=== PATIENT | male | born 1945 | race Caucasian/White ===

== ENCOUNTER 2018-06-25 11:30 | Outpatient (CLI) | payer OTHER | END 2018-06-25 23:59 | disposition home or self-care (01) | LOC: CARD DIAG 11:30 | PROVIDERS: ATTEND Orthopaedic Surgery | DX: I08.1 Rheumatic disorders of both mitral and tricuspid valves (principal); I25.10 Atherosclerotic heart disease of native coronary artery without angina pectoris | CPT/HCPCS: 93306 ==